=== PATIENT | female | born 1975 | race Caucasian/White ===

== ENCOUNTER 2021-05-02 08:00 | Outpatient (CLI) | payer OTHER | END 2021-05-02 23:59 | disposition home or self-care (01) | LOC: LAB.S 08:00 | PROVIDERS: ATTEND Physician Assistant Medical | DX: R39.15 Urgency of urination (principal); R35.0 Frequency of micturition | CPT/HCPCS: 87086 ==

== ENCOUNTER 2022-09-11 18:54 | Emergency (ER) | payer OTHER ==
--- OUTSIDE RECORDS SUMMARY | 2022-09-11 19:20 | EXTERNAL MEDICAL SUMMARY RPT | Continuity of Care Document ---
:1975 Author Organization [facility] Address [address] [place] [address] Phone Care Team Providers Name Role Phone Unavailable Unavailable Unavailable Berna Joseph Pa-C Unavailable Unavailable Allergies No information. Encounters No information. Functional Status No information. Immunizations No information. Medications date description facility 2022-07-16 00:00 guanfacine [facility] 2022-07-17 00:00 guanfacine [facility] 2022-07-16 00:00 budesonide[facility]oterol [facility] 2022-07-17 00:00 budesonide-formoterol [facility] 2022-07-16 00:00 buspirone [facility] 2022-07-17 00:00 buspirone [facility] 2022-07-16 00:00 ipratropium-albuterol [facility] 2022-07-17 00:00 ipratropium-albuterol [facility] 2022-07-16 00:00 albuterol sulfate [facility] 2022-07-17 00:00 albuterol sulfate [facility] 2022-07-16 00:00 lisinopril [facility] 2022-07-17 00:00 lisinopril [facility] 2022-07-16 00:00 tiotropium bromide [facility] 2022-07-17 00:00 tiotropium bromide Walk[facility]In [facility] 2022-07-16 00:00 ipratropium bromide [facility] 2022-07-17 00:00 ipratropium bromide [facility] 2022-07-16 00:00 bupropion hcl Walk[facility]In [facility] 2022-07-17 00:00 bupropion hcl [facility] 2022-07-16 00:00 budesonide-formoterol [facility] 2022-07-17 00:00 budesonide-formoterol [facility] 2022-07-16 00:00 lisinopril [facility] 2022-07-17 00:00 lisinopril [facility] 2022-07-16 00:00 valacyclovir [facility] 2022-07-16 00:00 budesonide-formoterol [facility] 2022-07-17 00:00 budesonide-formoterol [facility] 2022-07-16 00:00 norgestrel-ethinyl estradiol [facility] 2022-07-17 00:00 norgestrel-ethinyl estradiol [facility] 2022-07-16 00:00 ipratropium-albuterol [facility] 2022-07-17 00:00 ipratropium-albuterol [facility] 2022-07-16 00:00 ipratropium-albuterol [facility] 2022-07-17 00:00 ipratropium-albuterol [facility] 2022-07-16 00:00 guanfacine [facility] 2022-07-17 00:00 guanfacine [facility] 2022-07-16 00:00 thyroid (pork) [facility] 2022-07-17 00:00 thyroid (pork) [facility] 2022-07-16 00:00 norgestrel-ethinyl estradiol [facility] 2022-07-17 00:00 norgestrel-ethinyl estradiol [facility] 2022-07-16 00:00 thyroid (pork) [facility] 2022-07-17 00:00 thyroid (pork) [facility] 2022-07-16 00:00 norgestrel-ethinyl estradiol [facility] 2022-07-17 00:00 norgestrel-ethinyl estradiol [facility] 2022-07-16 00:00 topiramate [facility] 2022-07-17 00:00 topiramate [facility] 2022-07-16 00:00 carvedilol [facility] 2022-07-17 00:00 carvedilol [facility] 2022-07-16 00:00 montelukast [facility] 2022-07-17 00:00 montelukast [facility] 2022-07-16 00:00 norgestrel-ethinyl estradiol [facility] 2022-07-17 00:00 norgestrel-ethinyl estradiol [facility] 2022-07-16 00:00 liothyronine [facility] 2022-07-17 00:00 liothyronine [facility] 2022-07-16 00:00 thyroid (pork) [facility] 2022-07-17 00:00 thyroid (pork) [facility] 2022-07-16 00:00 lamotrigine [facility] 2022-07-17 00:00 lamotrigine [facility] 2022-07-16 00:00 liothyronine [facility] 2022-07-17 00:00 liothyronine [facility] 2022-07-16 00:00 valacyclovir [facility] 2022-07-16 00:00 lisinopril [facility] 2022-07-17 00:00 lisinopril [facility] 2022-07-16 00:00 carvedilol [facility] 2022-07-17 00:00 carvedilol [facility] 2022-07-16 00:00 atomoxetine [facility] 2022-07-17 00:00 atomoxetine [facility] 2022-07-16 00:00 valacyclovir [facility] 2022-07-16 00:00 lisinopril [facility] 2022-07-17 00:00 lisinopril [facility] 2022-07-16 00:00 lamotrigine [facility] [place] [facility] 2022-07-17 00:00 lamotrigine [facility] [place] [facility] 2022-07-16 00:00 carvedilol [facility] [place] [facility] 2022-07-17 00:00 carvedilol [facility] [place] [facility] 2022-07-16 00:00 thyroid (pork) [facility] [place] [facility] 2022-07-17 00:00 thyroid (pork) [facility] [place] [facility] 2022-07-16 00:00 liothyronine [facility] [place] [facility] 2022-07-17 00:00 liothyronine [facility] [place] [facility] 2022-07-16 00:00 ipratropium bromide [facility] 2022-07-17 00:00 ipratropium bromide [facility] 2022-07-16 00:00 tiotropium bromide [facility] [place] [facility] 2022-07-17 00:00 tiotropium bromide [facility] [place] [facility] 2022-07-16 00:00 albuterol sulfate [facility] [place] [facility] 2022-07-17 00:00 albuterol sulfate [facility] [place] [facility] 2022-07-16 00:00 [facility] 2022-07-17 00:00 ipratropium-albuterol [facility] 2022-07-16 00:00 budesonide-formoterol [facility] 2022-07-17 00:00 budesonide-formoterol [facility] 2022-07-16 00:00 montelukast [facility] 2022-07-17 00:00 montelukast [facility] 2022-07-16 00:00 topiramate [facility] 2022-07-17 00:00 topiramate [facility] 2022-07-16 00:00 montelukast [facility] 2022-07-17 00:00 montelukast [facility] 2022-07-16 00:00 cyclobenzaprine [facility] 2022-07-17 00:00 cyclobenzaprine [facility] 2022-07-16 00:00 buspirone [facility] 2022-07-17 00:00 buspirone [facility] 2022-07-16 00:00 tiotropium bromide [facility] 2022-07-17 00:00 tiotropium bromide [facility] 2022-07-16 00:00 bupropion hcl [facility] 2022-07-17 00:00 bupropion hcl [facility] 2022-07-16 00:00 cyclobenzaprine [facility] 2022-07-17 00:00 cyclobenzaprine [facility] 2022-07-16 00:00 lamotrigine [facility] 2022-07-17 00:00 lamotrigine [facility] 2022-07-16 00:00 guanfacine [facility] 2022-07-17 00:00 guanfacine [facility] 2022-07-16 00:00 atomoxetine [facility] 2022-07-17 00:00 atomoxetine [facility] 2022-07-16 00:00 albuterol sulfate [facility] 2022-07-17 00:00 albuterol sulfate [facility] 2022-07-16 00:00 buspirone [facility] 2022-07-17 00:00 buspirone [facility] 2022-07-16 00:00 valacyclovir [facility] 2022-07-16 00:00 montelukast [facility] 2022-07-17 00:00 montelukast [facility] 2022-07-16 00:00 albuterol sulfate [facility] 2022-07-17 00:00 albuterol sulfate [facility] 2022-07-16 00:00 carvedilol [facility] 2022-07-17 00:00 carvedilol [facility] 2022-07-16 00:00 topiramate [facility] 2022-07-17 00:00 topiramate [facility] 2022-07-16 00:00 atomoxetine [facility] 2022-07-17 00:00 atomoxetine [facility] 2022-07-16 00:00 lamotrigine [facility] 2022-07-17 00:00 lamotrigine [facility] 2022-07-16 00:00 topiramate [facility] 2022-07-17 00:00 topiramate [facility] 2022-07-16 00:00 cyclobenzaprine [facility] 2022-07-17 00:00 cyclobenzaprine [facility] 2022-07-16 00:00 atomoxetine [facility] 2022-07-17 00:00 atomoxetine [facility] 2022-07-16 00:00 cyclobenzaprine [facility] 2022-07-17 00:00 cyclobenzaprine [facility] 2022-07-16 00:00 ipratropium bromide [facility] 2022-07-17 00:00 ipratropium bromide [facility] 2022-07-16 00:00 bupropion hcl [facility] 2022-07-17 00:00 bupropion hcl [facility] 2022-07-16 00:00 guanfacine [facility] 2022-07-17 00:00 guanfacine [facility] 2022-07-16 00:00 buspirone [facility] 2022-07-17 00:00 buspirone [facility] 2022-07-16 00:00 tiotropium bromide [facility] 2022-07-17 00:00 tiotropium bromide [facility] 2022-07-16 00:00 liothyronine Walk[facility] 2022-07-17 00:00 liothyronine [facility] 2022-07-16 00:00 ipratropium bromide [facility] 2022-07-17 00:00 ipratropium bromide [facility] 2022-07-16 00:00 bupropion hcl [facility] 2022-07-17 00:00 bupropion hcl [facility] Problems date description facility 2022-07-16 00:00 Herpes zoster [facility] 2022-07-16 00:00 Other herpes zoster eye disease [facility] Procedures date description facility 2022-07-16 00:00 Visit Code Hold [facility] Results/Labs No information. Social History date description facility 2022-07-16 00:00 Never smoker [facility] Vital Signs date measurement value units 2022-07-16 00:00 BMI 47.41 kg/m2 2022-07-16 00:00 BP_diastolic 85 mmHg 2022-07-16 00:00 BP_systolic 130 mmHg 2022-07-16 00:00 heart_rate 83 /min 2022-07-16 00:00 height_metric 154.94 cm 2022-07-16 00:00 height_standard 61 in 2022-07-16 00:00 respiration_rate 16 /min 2022-07-16 00:00 temperature_metric 36.72 C 2022-07-16 00:00 temperature_standard 98.1 F 2022-07-16 00:00 weight_metric 113.4 kg 2022-07-16 00:00 weight_standard 250 lb
--- NOTE | 2022-09-11 19:27 | ED Physician Documentation ---
History of Present Illness - Stated complaint Stated Complaint: L SIDE NUMBNESS - Chief complaint Chief Complaint: Neuro - History obtained from History obtained from: Patient, Family - History of Present Illness Timing: Today Pain level max: 0 Pain level now: 0 - Additonal information Additional information: Patient is a 47-year-old female who presents to the emergency department stating that earlier today she felt a tingling and numbness sensation to the left side of her face from her forehead down to her jaw. She states she also felt a similar sensation mainly in her left hand but slightly down the lateral aspect of the left arm as well. She then felt the same tingling in her right arm. She states that it would last for maybe a few seconds to a few minutes and then resolved. She states that occurred a few times today. No headache. No fever. No chills. No chest pain. No shortness of breath. She states that she was on a Zoom call for work and they had her smile and show her teeth and lift her arms. She states that they said everything appeared normal. Patient felt that she did not have any difficulty speaking or have any slurring of her speech. Has not had similar symptoms previously. Went to the walk-in clinic and was sent here for evaluation. Patient is currently fully asymptomatic. Patient has not had any recent illnesses. No changes in her medications. No rash. Review of Systems Constitutional: denies: Fever, Chills Respiratory: denies: Dyspnea, Cough GI: denies: Abdominal Pain, Vomiting, Diarrhea Skin: denies: Rash Musculoskeletal: denies: Neck pain, Back pain Neurologic: denies: Focal weakness, Seizure, Confused, Altered mental status, Headache PD PAST MEDICAL HISTORY - Past Medical History Past Medical History: Yes Cardiovascular: Hypertension Endocrine/Autoimmune: HyPOthyroidism Psych: Depression, Anxiety - Allergies Allergies/Adverse Reactions: Allergies Allergy/AdvReac Type Severity Reaction Status Date / Time No Known Drug Allergies Allergy Verified 09/11/22 18:57 - Living Situation Living Situation: reports: With family Living Arrangement: reports: At home - Social History Does the pt smoke?: No Does the pt drink ETOH?: Yes ETOH Use: Other (Occasional) Does the pt have substance abuse?: Yes Substance Use and Type: Marijuana - Family History Family history: reports: Non contributory PD ED PE NORMAL - Vitals Vital signs reviewed: Yes - General General: Alert and oriented X 3, No acute distress - HEENT HEENT: PERRL, Ears normal, Moist mucous membranes, Pharynx benign - Neck Neck: Supple, no meningeal sign, No bony TTP, No JVD, No bruit - Cardiac Cardiac: RRR, No murmur, Strong equal pulses - Respiratory Respiratory: No respiratory distress, Clear bilaterally - Abdomen Abdomen: Soft, Non tender, Non distended - Back Back: No spinal TTP - Derm Derm: Warm and dry, No rash - Extremities Extremities: No edema, No calf tenderness / cord - Neuro Neuro: Alert and oriented X 3, [employer] 2-12 intact, No motor deficit, No sensory deficit, Normal speech Eye Opening: Spontaneous Motor: Obeys Commands Verbal: Oriented GCS Score: 15 - Psych Psych: Normal mood, Normal affect Results - Vitals Vitals: Vital Signs - 24 hr 09/11/22 09/11/22 09/11/22 18:57 19:00 19:02 Temperature 36.8 C 37.4 C Heart Rate 90 95 Respiratory 16 16 Rate Blood Pressure 150/100 H 127/82 H O2 Saturation 99 98 Oxygen O2 Source Room air - EKG (time done) 2013 EKG releavant findings:: EKG personally interpreted by author of this note. Relevant findings are: Rate: Rate (enter#) (80) Rhythm: NSR Stephenson: Normal Intervals: Normal [place] QRS: Normal Ischemia: Normal ST segments - Labs Labs: Laboratory Tests 09/11/22 09/11/22 09/11/22 19:21 19:28 19:28 WBC 5.9 RBC 4.77 Hgb 15.5 Hct 46.5 MCV 97.5 MCH 32.5 H MCHC 33.3 RDW 12.3 Plt Count 291 MPV 9.1 Neut # (Auto) 2.4 Lymph # (Auto) 2.8 [place] # (Auto) 0.5 Eos # (Auto) 0.3 Baso # (Auto) 0.0 Absolute Nucleated RBC 0.00 Nucleated RBC % 0.0 PT INR APTT Sodium 140 Potassium 3.8 Chloride 109 Carbon Dioxide 24 Anion Gap 7.0 BUN 8 Creatinine 1.0 Estimated GFR (MDRD) 59 L Glucose 110 H Calcium 8.8 Phosphorus 3.2 Magnesium 2.2 Total Bilirubin 0.4 AST 18 ALT 22 Alkaline Phosphatase 49 Total Protein 7.1 Albumin 4.4 Globulin 2.7 Albumin/Globulin Ratio 1.6 Urine Color YELLOW Urine Clarity CLEAR Urine pH 8.0 H Ur Specific [place] 1.010 Urine Protein NEGATIVE Urine Glucose (UA) NEGATIVE Urine Ketones NEGATIVE Urine Occult Blood NEGATIVE Urine Nitrite NEGATIVE Urine Bilirubin NEGATIVE Urine Urobilinogen 0.2 (NORMAL) Ur Leukocyte Esterase NEGATIVE Ur Microscopic Review NOT INDICATED Urine Culture Comments NOT INDICATED Urine HCG, Qual NEGATIVE 09/11/22 19:31 WBC RBC Hgb Hct MCV MCH MCHC RDW Plt Count MPV Neut # (Auto) Lymph # (Auto) [place] # (Auto) Eos # (Auto) Baso # (Auto) Absolute Nucleated RBC Nucleated RBC % PT 10.8 INR 1.0 APTT 23.6 L Sodium Potassium Chloride Carbon Dioxide Anion Gap BUN Creatinine Estimated GFR (MDRD) Glucose Calcium Phosphorus Magnesium Total Bilirubin AST ALT Alkaline Phosphatase Total Protein Albumin Globulin Albumin/Globulin Ratio Urine Color Urine Clarity Urine pH Ur Specific [place] Urine Protein Urine Glucose (UA) Urine Ketones Urine Occult Blood Urine Nitrite Urine Bilirubin Urine Urobilinogen Ur Leukocyte Esterase Ur Microscopic Review Urine Culture Comments Urine HCG, Qual - Rads (name of study) CT angio head Relevant Findings:: Final report received, See rad report CT angio neck Relevant Findings:: Final report received, See rad report PD Medical Decision Making - ED course Complexity details: reviewed results, re-evaluated patient, considered differential, d/w patient ED course: Patient with self-limited paresthesias earlier today. Mainly on the left side of the face and arm, but did have some on the right arm as well. Unclear etiology of her paresthesias. No motor involvement. No vision changes. No speech changes. NIH stroke scale of 0. Patient is asymptomatic here. No acute findings on CT angiogram of the head and neck. No acute findings on CBC, coagulation studies, complete metabolic panel including magnesium and phosphorus or urinalysis. We will have her follow-up with her doctor for further care. No evidence of aneurysm, stroke, intracranial hemorrhage. Patient counseled re garding signs and symptoms for which I believe and urgent re-evaluation would be necessary. Patient with good understanding of and agreement to plan and is comfortable going home at this time This document was made in part using voice recognition software. While efforts are made to proofread this document, sound alike and grammatical errors may occur. Departure - Departure Disposition: Home, Self Care Clinical Impression: Paresthesia Condition: Good Instructions: ED Paraesthesias Follow-Up: Christine Jerry ARNP [Primary Care Provider] - Within 1 week Comments: The cause of your symptoms today is unclear. There are no acute findings on CT angiogram of your head and neck. Your laboratory testing and EKG are unremarkable as well. Please follow-up with your doctor for further care and r eturn if you worsen. Please continue your current medications at home. CT angiogram head: IMPRESSION: 1. No acute intracranial abnormality. 2. No high-grade stenosis or occlusion of the central intracranial arteries. CT Angiogram neck: IMPRESSION: 1. No high-grade stenosis or occlusion of the head and neck arteries. 2. Short segment mild to moderate extrinsic narrowing of the petrous segment of the right internal carotid artery within its bony canal of indeterminate clinical significance. The estimate of stenosis included in the report of the imaging study was calculated using the NASCET method NIHSS - Time Time: 19:20 - Level of Consciousness Level of consciousness: (0) Alert, Keenly responsive LOC Questions: (0) Answers both Q's correct LOC Commands: (0) Performs both correctly - Gaze Best Gaze: (0) Normal - Visual Visual: (0) No loss - Facial Palsy Facial Palsy: (0) Normal, symmetrical movement - Motor Arms (both separate) Motor Arm (right): (0) No drift Motor Arm (left): (0) No drift - Motor Legs (both separate) Motor Leg (right): (0) No drift Motor Leg (left): (0) No drift - Limb Ataxia Limb Ataxia: (0) Absent - Sensory Sensory: (0) Normal - Best Language Best Language: (0) No aphasia - Dysarthria Dysarthria: (0) Normal - Extinction and Inattention (formally neg Extinction and inattention: (0) No abnormality - Total Score/Results Total Score/Result: 0
[2022-09-11 19:38] LABS: BASOPHILS % (AUTO) 0.5 %; EOSINOPHILS # (AUTO) 0.3 10^3/uL (0.0-0.7); EOSINOPHILS % (AUTO) 4.5 %; HCT - HEMATOCRIT 46.5 % (37.0-47.0); HGB - HEMOGLOBIN 15.5 g/dL (12.0-16.0); LYMPHOCYTES # (AUTO) 2.8 10^3/uL (1.5-3.5); LYMPHOCYTES % (AUTO) 47.5 %; MEAN CORPUSCULAR HEMOGLOBIN 32.5 pg (27.0-31.0); MEAN CORPUSCULAR HGB CONC 33.3 g/dL (32.0-36.0); MEAN CORPUSCULAR VOLUME 97.5 fL (81.0-99.0); MEAN PLATELET VOLUME 9.1 fL (7.9-10.8); MONOCYTES # (AUTO) 0.5 10^3/uL (0.0-1.0); MONOCYTES % (AUTO) 7.7 %; NEUTROPHILS # (AUTO) 2.4 10^3/uL (1.5-6.6); NEUTROPHILS % (AUTO) 39.8 %; PLT - PLATELET COUNT 291 10^3/uL (130-450); RED BLOOD COUNT 4.77 10^6/uL (4.20-5.40); RED CELL DISTRIBUTION WIDTH 12.3 % (12.0-15.0); WHITE BLOOD COUNT 5.9 x10^3/uL (4.8-10.8)
[2022-09-11 19:44] LABS: BILIRUBIN,URINE NEGATIVE (NEGATIVE); GLUCOSE, URINE (UA) NEGATIVE (NEGATIVE); KETONES,URINE (UA) NEGATIVE (NEGATIVE); LEUKOCYTE ESTERASE, URINE NEGATIVE (NEGATIVE); NITRITE,URINE NEGATIVE (NEGATIVE); OCCULT BLOOD,URINE NEGATIVE (NEGATIVE); PROTEIN,URINE NEGATIVE (NEGATIVE); UROBILINOGEN,URINE 0.2 (NORMAL) E.U./dL (NORMAL)
[2022-09-11 19:45] LABS: PT - PROTHROMBIN TIME 10.8 secs (9.9-12.6)
[2022-09-11 19:48] LABS: CLARITY,URINE CLEAR (CLEAR); HCG UR QUAL NEGATIVE
[2022-09-11 19:50] LABS: ALBUMIN 4.4 g/dL (3.2-5.5); ALBUMIN/GLOBULIN RATIO 1.6 (1.0-2.2); BILIRUBIN,TOTAL 0.4 mg/dL (0.2-1.0); CALCIUM 8.8 mg/dL (8.5-10.3); MAGNESIUM 2.2 mg/dL (1.7-2.8); PHOSPHORUS 3.2 mg/dL (2.5-4.6); POTASSIUM 3.8 mmol/L (3.5-5.0); TOTAL PROTEIN 7.1 g/dL (6.7-8.2)
[2022-09-11 19:52] LABS: PARTIAL THROMBOPLASTIN TIME 23.6 secs (24.9-33.3)
[2022-09-11] MEDS ORDERED: iohexoL-300 100 ML VIAL ONE (20:12)
[2022-09-11] MEDS: iohexoL-300 100 ML VIAL IVP ONE (20:41)
--- NOTE | 2022-09-11 20:51 | CT Report ---
PROCEDURE: ANGIO HEAD W/WO INDICATIONS: Left-sided arm and facial numbness earlier today CONTRAST: 80mL Omni 300 TECHNIQUE: Precontrast 4.5 mm thick angled axial sections acquired from the foramen magnum to the vertex. Afte r the administration of intravenous contrast, 1 mm thick sections acquired through the [place] of [place] is. Postcontrast 4.5 mm thick sections then re-acquired from the foramen magnum to the vertex. 3-di mensional wtfonjo-dfmdzzlev-gkdrzuxbak (MIP) and/or volume rendering reformats were acquired of the c entral intracranial vasculature. For radiation dose reduction, the following was used: automated ex posure control, adjustment of mA and/or kV according to patient size. COMPARISON: Concurrent CTA of the neck. FINDINGS: Image quality: Diagnostic. BRAIN: CSF spaces: Basal cisterns are patent. No extra-axial fluid collections. Ventricles are normal in size and shape. Brain: No intracranial hemorrhage, mass, or mass effect. Sutton-white matter interface appears preser cande. No abnormal intracranial enhancement. Skull and face: Calvarium and facial bones appear intact, without suspicious lesions. Orbits appear normal. Sinuses: There is mild mucosal thickening within the right ethmoid and frontal sinuses. Mastoid air c ells are clear. HEAD CT ANGIOGRAPHY: Anterior circulation: Intracranial internal carotid arteries are normal in size and appear patent bi laterally. There is mild atherosclerotic calcification along the cavernous segments of the internal carotid arteries. The paired anterior cerebral arteries appear patent bilaterally. The anterior com municating artery also appears patent. The middle cerebral arteries appear patent bilaterally. No hi gh-grade stenosis, occlusion, or filling defects. No cerebral aneurysms identified. Posterior circulation: Visualized portions of the vertebral arteries demonstrate normal caliber, and join to form a patent basilar artery. The posterior cerebral arteries appears patent bilaterally. No high-grade stenosis, occlusion, or filling defects. No cerebral aneurysms identified. IMPRESSION: 1. No acute intracranial abnormality. 2. No high-grade stenosis or occlusion of the central intracranial arteries. Reviewed by: Stephon Hardwick MD on 09/11/2022 8:50 PM PDT Approved by: Stephon Hardwick MD on 09/11/2022 8:50 PM PDT Station ID: [id number]
--- NOTE | 2022-09-11 20:59 | CT Report ---
PROCEDURE: ANGIO NECK W INDICATIONS: Left-sided arm and facial numbness earlier today CONTRAST: 80mL Omni 300 TECHNIQUE: After the administration of intravenous contrast, 1.5 mm axial sections acquired from the aortic arch to the [place] of [place]. Coronal 3-D maximum intensity projection (MIP) and/or volume rendering ref ormats were then performed. For radiation dose reduction, the following was used: automated exposur e control, adjustment of mA and/or kV according to patient size. COMPARISON: Concurrent CTA head. FINDINGS: Image quality: There is beam hardening artifact in the thorax as well as streak artifact from patient 's injected contrast limiting evaluation. NECK CT ANGIOGRAPHY: Carotid system: The great vessels demonstrate a conventional anatomy as they arise from the aortic a rch. The origins of the common carotid arteries appear patent. The common carotid arteries demonstr ate normal caliber and courses. The bifurcation regions are both widely patent. The internal caroti d arteries appear patent bilaterally. There is mild to moderate short segment extrinsic narrowing of the petrous segment of the right internal carotid artery within its bony canal Posterior circulation: The origins of the vertebral arteries both appear patent. The more superior extracranial portions of both vertebral arteries also demonstrate normal courses and calibers. They join to form a patent basilar artery. Soft tissues: Visualized neck soft tissues demonstrate no suspicious abnormalities. Bones: No suspicious bony lesions. Visualized cervical spine demonstrates straightening of the cerv ical lordosis. There is multilevel degenerative disc disease and facet joint arthropathy. IMPRESSION: 1. No high-grade stenosis or occlusion of the head and neck arteries. 2. Short segment mild to moderate extrinsic narrowing of the petrous segment of the right internal ca rotid artery within its bony canal of indeterminate clinical significance. The estimate of stenosis included in the report of the imaging study was calculated using the NASCET method Reviewed by: Stephon Hardwick MD on 09/11/2022 8:57 PM PDT Approved by: Stephon Hardwick MD on 09/11/2022 8:57 PM PDT Station ID: [id number]
[2022-09-11 21:07] VITALS: BP 131/72
== END 2022-09-11 21:17 | disposition home or self-care (01) ==
LOC: ED 18:54
DX: R20.2 Paresthesia of skin (principal)
CPT/HCPCS: 36415; 70496; 70498; 80053; 81003; 81025; 83735; 84100; 85025; 85610; 85730; 93005; 99283; 99284; Q9967; 81001; 87086

== ENCOUNTER 2023-04-06 20:23 | Emergency (ER) | payer OTHER ==
[2023-04-06 21:00] LABS: BASOPHILS # (AUTO) 0.1 10^3/uL (0.0-0.1); BASOPHILS % (AUTO) 0.6 %; EOSINOPHILS # (AUTO) 0.2 10^3/uL (0.0-0.7); EOSINOPHILS % (AUTO) 1.7 %; HCT - HEMATOCRIT 46.9 % (37.0-47.0); HGB - HEMOGLOBIN 15.6 g/dL (12.0-16.0); LYMPHOCYTES # (AUTO) 3.1 10^3/uL (1.5-3.5); MEAN CORPUSCULAR HEMOGLOBIN 32.6 pg (27.0-31.0); MEAN CORPUSCULAR HGB CONC 33.3 g/dL (32.0-36.0); MEAN CORPUSCULAR VOLUME 98.1 fL (81.0-99.0); MEAN PLATELET VOLUME 8.9 fL (7.9-10.8); MONOCYTES # (AUTO) 0.6 10^3/uL (0.0-1.0); MONOCYTES % (AUTO) 7.1 %; NEUTROPHILS # (AUTO) 4.9 10^3/uL (1.5-6.6); NEUTROPHILS % (AUTO) 55.3 %; PLT - PLATELET COUNT 317 10^3/uL (130-450); RED BLOOD COUNT 4.78 10^6/uL (4.20-5.40); RED CELL DISTRIBUTION WIDTH 11.8 % (12.0-15.0); WHITE BLOOD COUNT 8.9 x10^3/uL (4.8-10.8)
[2023-04-06 21:07] LABS: BILIRUBIN,URINE NEGATIVE (NEGATIVE); GLUCOSE, URINE (UA) NEGATIVE (NEGATIVE); KETONES,URINE (UA) NEGATIVE (NEGATIVE); LEUKOCYTE ESTERASE, URINE NEGATIVE (NEGATIVE); NITRITE,URINE POSITIVE (NEGATIVE); OCCULT BLOOD,URINE SMALL (NEGATIVE); PH,URINE 7.5 PH (5.0-7.5); PROTEIN,URINE TRACE mg/dL (NEGATIVE); UROBILINOGEN,URINE 1 (NORMAL) E.U./dL (NORMAL)
[2023-04-06] MEDS ORDERED: ONDANSETRON ODT 4 MG TABLET TL STA (21:08)
--- NOTE | 2023-04-06 21:08 | ED Physician Documentation ---
History of Present Illness - Stated complaint Stated Complaint: BACK/ABD PX - Chief complaint Chief Complaint: Abd Pain - Additonal information Additional information: I do not care 1 where in 39-year-old female presents to the emergency de partment for evaluation of dysuria urgency and frequency. Symptoms began this morning. No fevers. Some nausea no vomiting. This afternoon she began to have pain in the low back radiating towards the front. She did take some Azo [id number] as well as one of her husbands Vicodin's. Past surgical history most significant for previous cholecystectomy. Review of Systems Constitutional: denies: Fever Throat: reports: Reviewed and negative Cardiac: reports: Reviewed and negative Respiratory: reports: Reviewed and negative GI: reports: Abdominal Pain, Nausea. denies: Vomiting : reports: Dysuria, Frequency Skin: reports: Reviewed and negative Musculoskeletal: reports: Reviewed and negative PD PAST MEDICAL HISTORY - Past Medical History Cardiovascular: Hypertension Endocrine/Autoimmune: HyPOthyroidism Psych: Depression, Anxiety - Present Medications Home Medications: Ambulatory Orders Medication Instructions Recorded Confirmed Cefpodoxime Proxetil [Vantin] 100 mg PO Q12H #14 tablet 04/06/23 - Allergies Allergies/Adverse Reactions: Allergies Allergy/AdvReac Type Severity Reaction Status Date / Time No Known Drug Allergies Allergy Verified 04/06/23 20:43 - Social History Does the pt smoke?: No Smoking Status: Never smoker Does the pt drink ETOH?: Yes Does the pt have substance abuse?: Yes - Immunizations Immunizations are current?: Yes - POLST Patient has POLST: No PD ED PE NORMAL - General General: Alert and oriented X 3, No acute distress - HEENT HEENT: Atraumatic, Moist mucous membranes - Neck Neck: Supple, no meningeal sign - Cardiac Cardiac: RRR, No murmur - Respiratory Respiratory: No respiratory distress - Abdomen Abdomen: Normal bowel sounds, Soft. No: Non tender (mild lowr abdorminal tenderness. no guarding/rebound. exam limited by habitus) - Back Back: No CVA TTP - Derm Derm: Normal color - Extremities Extremities: No deformity - Neuro Neuro: Alert and oriented X 3 Eye Opening: Spontaneous Motor: Obeys Commands Verbal: Oriented GCS Score: 15 Results - Vitals Vitals: Vital Signs - 24 hr 04/06/23 20:38 Temperature 36.7 C Heart Rate 81 Respiratory 18 Rate Blood Pressure 140/88 H O2 Saturation 98 Oxygen O2 Source Room air - Labs Labs: Laboratory Tests 04/06/23 04/06/23 04/06/23 20:54 20:54 20:54 WBC 8.9 RBC 4.78 Hgb 15.6 Hct 46.9 MCV 98.1 MCH 32.6 H MCHC 33.3 RDW 11.8 L Plt Count 317 MPV 8.9 Neut # (Auto) 4.9 Lymph # (Auto) 3.1 [place] # (Auto) 0.6 Eos # (Auto) 0.2 Baso # (Auto) 0.1 Absolute Nucleated RBC 0.00 Nucleated RBC % 0.0 Sodium 137 Potassium 3.7 Chloride 106 Carbon Dioxide 24 Anion Gap 7.0 BUN 12 Creatinine 1.2 Estimated GFR (MDRD) 48 L Glucose 101 Calcium 9.8 Total Bilirubin 0.4 AST 16 ALT 26 Alkaline Phosphatase 60 Total Protein 7.8 Albumin 4.5 Globulin 3.3 Albumin/Globulin Ratio 1.4 Lipase 30 Urine Color YELLOW Urine Clarity CLOUDY Urine pH 7.5 Ur Specific [place] 1.020 Urine Protein TRACE Urine Glucose (UA) NEGATIVE Urine Ketones NEGATIVE Urine Occult Blood SMALL H Urine Nitrite POSITIVE H Urine Bilirubin NEGATIVE Urine Urobilinogen 1 (NORMAL) Ur Leukocyte Esterase NEGATIVE Urine RBC 6-10 H Urine WBC 0-3 Ur Squamous Epith Cells NONE SEEN Amorphous Sediment Marked Urine Bacteria Few Ur Microscopic Review INDICATED Urine Culture Comments INDICATED Urine HCG, Qual 04/06/23 20:54 WBC RBC Hgb Hct MCV MCH MCHC RDW Plt Count MPV Neut # (Auto) Lymph # (Auto) [place] # (Auto) Eos # (Auto) Baso # (Auto) Absolute Nucleated RBC Nucleated RBC % Sodium Potassium Chloride Carbon Dioxide Anion Gap BUN Creatinine Estimated GFR (MDRD) Glucose Calcium Total Bilirubin AST ALT Alkaline Phosphatase Total Protein Albumin Globulin Albumin/Globulin Ratio Lipase Urine Color Urine Clarity Urine pH Ur Specific [place] Urine Protein Urine Glucose (UA) Urine Ketones Urine Occult Blood Urine Nitrite Urine Bilirubin Urine Urobilinogen Ur Leukocyte Esterase Urine RBC Urine WBC Ur Squamous Epith Cells Amorphous Sediment Urine Bacteria Ur Microscopic Review Urine Culture Comments Urine HCG, Qual NEGATIVE PD Medical Decision Making - ED course Complexity details: reviewed results, re-evaluated patient, considered differential, d/w patient ED course: 39-year-old female presents emergency department for evaluation 2 days dysuria urgency and frequency. Began having right-sided low back pain with radiation to the anterior abdomen this afternoon. Some nausea no vomiting. She did take Azo and her 's Vicodin prior to arrival. Presentation the emergency department she is alert and well-appearing. No fever tachycardia or hypotension. Abdominal exam was somewhat limited by body habitus. Did obtain CBC and electrolytes as well as urinalysis. Per my interpretation of the labs no leukocytosis or worrisome electrolyte derangement. Her urine is consistent with acute cystitis. Nitrite positive and some bacteria. Culture is pending. I have initially given a dose of Vantin for this. I discussed with patient that common things being common, urinary tract infection would explain the symptoms. However she feels that her pain was out of proportion for simple UTI and is concerned that she could have renal or ureter colic. As such we have ordered a CT of the abdomen for further differentiation. Patient will be signed out to my nighttime colleague to follow-up on the CT results. If negative she is stable for discharge home with prescription for Vantin sent to the patient's preferred pharmacy Departure - Departure Clinical Impression: Acute cystitis Qualifiers: Hematuria presence: with hematuria Qualified Code(s): N30.01 - Acute cystitis with hematuria Prescriptions: Cefpodoxime Proxetil [Vantin] 100 mg PO Q12H #14 tablet Comments: You were seen today or pain and urgency with urination. You then developed pain in your right low back with radiation to the lower abdomen. You were concerned that you have kidney stones. Your labs are essentially normal today though you do have a urinary tract infection. A prescription for an antibiotic called Vantin has been sent to the [facility] in [place]. Please begin taking as directed twice daily for the next week. With the first few doses of antibiotics I would expect your symptoms to be markedly better. Please follow closely with your primary care doctor. Return to the ER for any new or worsening symptoms. Forms: PCP List
[2023-04-06 21:09] LABS: CLARITY,URINE CLOUDY (CLEAR)
[2023-04-06 21:10] LABS: HCG UR QUAL NEGATIVE
[2023-04-06 21:13] LABS: ALBUMIN 4.5 g/dL (3.2-5.5); ALBUMIN/GLOBULIN RATIO 1.4 (1.0-2.2); BILIRUBIN,TOTAL 0.4 mg/dL (0.2-1.0); CALCIUM 9.8 mg/dL (8.5-10.3); CREATININE 1.2 mg/dL (0.6-1.3); POTASSIUM 3.7 mmol/L (3.5-4.5); TOTAL PROTEIN 7.8 g/dL (6.4-8.9)
[2023-04-06 21:20] LABS: WBC,URINE 0-3 /HPF (0-5)
[2023-04-06 21:21] LABS: AMORPHOUS SEDIMENT,UR Marked /LPF; BACTERIA,URINE Few /HPF (None Seen); SQUAMOUS EPITHELIAL CELL,UR NONE SEEN (<= Few)
[2023-04-06] MEDS ORDERED: CEFPODOXIME PROXETIL 100 MG TABLET PO STA (21:22)
[2023-04-07] MEDS ORDERED: iohexoL-300 100 ML VIAL IVP ONE (00:10)
--- NOTE | 2023-04-07 00:13 | CT Report ---
PROCEDURE: ABDOMEN/PELVIS W INDICATIONS: UTI; r/o ureter and renal colic CONTRAST: Nonionic 100 ML OMNI 300 TECHNIQUE: After the administration of intravenous contrast, 5 mm thick sections acquired from the diaphragms to the symphysis. 5 mm thick coronal and sagittal reformats were acquired. For radiation dose reducti on, the following was used: automated exposure control, adjustment of mA and/or kV according to grant ent size. COMPARISON: None. FINDINGS: Image quality: Excellent. Lung bases and heart: Unremarkable. Liver: No solid mass. Gallbladder and biliary tree: The gallbladder has been previously resected, no biliary distention is present. Spleen: No splenomegaly. Pancreas: No pancreatic ductal dilation. Adrenals: No adrenal nodule. Kidneys and ureters: No hydronephrosis. No renal cystic lesion which requires follow up. No solid mas s. Bowel and peritoneum: No bowel distension. No pathologic free fluid. Lymph nodes: No central or retroperitoneal adenopathy. Vessels: No infrarenal aortic aneurysm. PELVIS Reproductive organs: Unremarkable. Bladder: No abnormal wall thickening, accounting for underdistension. Pelvic lymph nodes: No pelvic adenopathy by size criteria. Bones: No aggressive osseous abnormality. Other: No significant ventral or inguinal hernia. IMPRESSION: No hydronephrosis or nephrolithiasis is found, a definite source of current symptoms is not seen. A n ormal or abnormal appendix could not be located but no secondary CT evidence of acute appendicitis is found. Reviewed by: Cleveland Gonzalez MD on 04/07/2023 12:12 AM PDT Approved by: Cleveland Gonzalez MD on 04/07/2023 12:12 AM PDT Station ID: [id number]
[2023-04-07 01:23] VITALS: BP 139/94; O2SAT 98
--- NOTE | 2023-04-07 07:01 | ED Physician Documentation ---
ED Addendum - Addendum Addendum: 04/07/23 06:57 I received signout/turnover of care on this patient from FRANNIE Bagley; please see her note for complete history and physical. In brief, patient presented with right-sided abdominal pain radiating around the right side to her right flank and right lower back. Mostly unremarkable work-up although urinalysis did have nitrites and a small amount of blood. RFANNIE Bagley ordered a dose of Vantin and electronically submitted a prescription for this antibiotic to the patient's pharmacy of choice. At the time of signout, a CT of the abdomen/pelvis is pending; the reason for this is that the patient has had previous UTIs, and she feels that the extent of her discomfort is significantly more severe than she has had with UTIs in the past. There are no concerning nor diagnostic findings on the CT scan of the abdomen/pelvis. This includes no evidence of ureteral calculi, hydronephrosis, ureteronephrosis. I discussed the CT result with the patient. She tells me that she is feeling much improved and she wonders if she might have had renal colic and subsequently passed the stone prior to the CT scan being performed. I explained to her that this would be a possible explanation, although typically there would still be some evidence of swelling of the ureter and/or the kidney (but the absence of such does not exclude this scenario is a possibility). Return precautions are discussed.
== END 2023-04-07 01:20 | disposition home or self-care (01) ==
LOC: ED 20:23
DX: N30.01 Acute cystitis with hematuria (principal); I10 Essential (primary) hypertension; E03.9 Hypothyroidism, unspecified; Z87.440 Personal history of urinary (tract) infections
CPT/HCPCS: 36415; 74177; 80053; 81001; 81025; 83690; 85025; 87086; 99284; A9270; Q0162; Q9967; 81003

== ENCOUNTER 2023-04-29 12:49 | Outpatient (CLI) | payer OTHER ==
[2023-04-29 14:40] LABS: BASOPHILS % (AUTO) 0.5 %; EOSINOPHILS # (AUTO) 0.3 10^3/uL (0.0-0.7); EOSINOPHILS % (AUTO) 3.5 %; HCT - HEMATOCRIT 46.1 % (37.0-47.0); HGB - HEMOGLOBIN 15.7 g/dL (12.0-16.0); LYMPHOCYTES # (AUTO) 2.9 10^3/uL (1.5-3.5); MEAN CORPUSCULAR HEMOGLOBIN 32.8 pg (27.0-31.0); MEAN CORPUSCULAR HGB CONC 34.1 g/dL (32.0-36.0); MEAN CORPUSCULAR VOLUME 96.2 fL (81.0-99.0); MEAN PLATELET VOLUME 9.8 fL (7.9-10.8); MONOCYTES # (AUTO) 0.6 10^3/uL (0.0-1.0); MONOCYTES % (AUTO) 8.3 %; NEUTROPHILS # (AUTO) 3.6 10^3/uL (1.5-6.6); NEUTROPHILS % (AUTO) 48.4 %; PLT - PLATELET COUNT 262 10^3/uL (130-450); RED BLOOD COUNT 4.79 10^6/uL (4.20-5.40); WHITE BLOOD COUNT 7.4 x10^3/uL (4.8-10.8)
[2023-04-29 17:08] LABS: ALBUMIN 4.5 g/dL (3.2-5.5); ALBUMIN/GLOBULIN RATIO 1.7 (1.0-2.2); ALKALINE PHOSPHATASE 54 IU/L (42-121); ALT ALANINE AMINOTRANSFERASE 24 IU/L (10-60); AMYLASE 27 U/L (28-100); AST ASPARTATE AMINOTRANSFERASE 18 IU/L (10-42); BILIRUBIN,TOTAL 0.6 mg/dL (0.2-1.0); BUN - BLOOD UREA NITROGEN 11 mg/dL (6-20); CALCIUM 9.3 mg/dL (8.5-10.3); CARBON DIOXIDE - CO2 23 mmol/L (21-32); CHLORIDE 109 mmol/L (101-111); CHOL/HDL RATIO 4.1 (<4.4); CHOLESTEROL 175 mg/dL; GFR - MDRD 59 (>89); GLUCOSE 90 mg/dL (74-104); HDL CHOLESTEROL 43 mg/dL; LDL CHOLESTEROL,CALCULATED 115 mg/dL; LDL/HDL RATIO 2.7 (<4.4); LIPASE 36 U/L (11-82); POTASSIUM 3.9 mmol/L (3.5-4.5); SODIUM 139 mmol/L (135-145); TOTAL PROTEIN 7.2 g/dL (6.4-8.9); TRIGLYCERIDES 86 mg/dL (48-352); VLDL CHOLESTEROL 17 mg/dL
[2023-04-29 17:25] LABS: THYROID STIMULATING HORMONE 1.28 uIU/mL (0.34-5.60)
== END 2023-04-29 12:50 | disposition home or self-care (01) ==
LOC: LAB.S 12:49
PROVIDERS: ATTEND Physician Assistant
DX: E03.9 Hypothyroidism, unspecified (principal); R94.4 Abnormal results of kidney function studies; R53.83 Other fatigue; R53.81 Other malaise
CPT/HCPCS: 36415; 80053; 80061; 82150; 83690; 83721; 84439; 84443; 84481; 85025

== ENCOUNTER 2023-05-27 13:33 | Outpatient (CLI) | payer OTHER ==
--- NOTE | 2023-05-27 16:02 | Ultrasound Report ---
PROCEDURE: Head or Neck Soft Tissue INDICATIONS: NODULE OF SUBCUTANEOUS TISSUE OF NECK TECHNIQUE: Real-time scanning was performed of the area of interest in the right submandibular area, with image documentation. COMPARISON: None FINDINGS: No abnormality is identified in the area of interest. IMPRESSION: No abnormality is identified on ultrasound to correlate with the palpable abnormality. I f clinical symptoms persist, consider CT or MRI. ACR TI-RADS definitions and recommendations: TI-RADS 1 (benign): 0 points. FNA not needed. TI-RADS 2 (not suspicious): 2 points. FNA not needed. TI-RADS 3 (mildly suspicious): 3 points. "FNA if 2.5 cm or larger, follow up if 1.5 cm or larger (at 1, 3, and 5 years). TI-RADS 4 (moderately suspicious): 4-6 points. "FNA if 1.5 cm or larger, follow up if 1 cm or larger (at 1, 2, 3, and 5 years). TI-RADS 5 (highly suspicious): 7 points or more. "FNA if 1 cm or larger, follow up if 0.5 cm or larger (every year for 5 years). Reviewed by: Chencho Aly MD on 05/27/2023 4:01 PM PST Approved by: Chencho Aly MD on 05/27/2023 4:01 PM PST Station ID: [id number]
== END 2023-05-27 13:34 | disposition home or self-care (01) ==
LOC: DI 13:33
PROVIDERS: ATTEND Physician Assistant Medical
DX: R22.1 Localized swelling, mass and lump, neck (principal)

== ENCOUNTER 2023-05-27 13:34 | Outpatient (CLI) | payer OTHER ==
--- NOTE | 2023-05-28 13:07 | Mammography Report ---
BILATERAL FIRST EVER DIGITAL SCREENING MAMMOGRAM 3D/2D: 05/27/2023 CLINICAL: Baseline exam. Routine screening. No prior exams were available for comparison. Both breasts are almost entirely fatty (category a/<25% glandular tissue). No significant masses, calcifications, or other findings are seen in either breast. IMPRESSION: NEGATIVE There is no mammographic evidence of malignancy. A 1 year screening mammogram is recommended. Based on the Tyrer Cuzick model (a risk assessment model) the patients lifetime risk is 7.5% and her 10 year risk is 1.6%. According to the ACR, ACS, and NCCN guidelines, an annual breast MRI exam yenifer g with mammogram is recommended if the patients lifetime risk is 20% or greater. This exam was interpreted at Station ID: [id number]. NOTE: For mammograms, a report in lay terms will be sent to the patient. Approximately 15% of breast malignancies will not be visualized mammographically. In the management of a palpable breast mass, a negative mammogram must not discourage biopsy of a clinically suspicious lesion. Electronically Signed By: Stevie andrade/joe:05/27/2023 15:26:01 letter sent: No_Letter ACR BI-RADS Category 1: Negative 3341F PARENCHYMAL PATTERN: (F) - The breast(s) demonstrate(s) diffuse fatty replacement. BI-RADS CATEGORY: (1) - 1 Mammogram [id number] 1 year screening LATERALITY: (B)
== END 2023-05-27 13:35 | disposition home or self-care (01) ==
LOC: DI 13:34
PROVIDERS: ATTEND Physician Assistant Medical
DX: Z12.31 Encounter for screening mammogram for malignant neoplasm of breast (principal)

== ENCOUNTER 2023-06-06 10:10 | Outpatient (CLI) | payer OTHER | END 2023-06-06 10:11 | disposition home or self-care (01) | LOC: LAB.S 10:10 | PROVIDERS: ATTEND Physician Assistant Medical | DX: N20.0 Calculus of kidney (principal); M79.673 Pain in unspecified foot | CPT/HCPCS: 36415; 84550 ==

== ENCOUNTER 2023-06-07 08:00 | Outpatient (CLI) | payer OTHER ==
[2023-06-07 15:45] LABS: CREATININE 24 HOUR,URINE 1434 mg/24h (600-1800); CREATININE,URINE 50.3 mg/dL; TOTAL PROTEIN 24HR,URINE 143 mg/24hr (40-150); TOTAL PROTEIN,URINE TIMED 5 mg/dL; TOTAL VOLUME 24HRS,URINE 2850 mL
[2023-06-07 15:56] LABS: MICROALBUMIN,URINE < 0.7 mg/dL
[2023-06-08 07:09] LABS: CALCIUM URINE 12.2 mg/dL (Not Estab.)
== END 2023-06-07 23:58 | disposition home or self-care (01) ==
LOC: LAB.F 08:00
PROVIDERS: ATTEND Physician Assistant Medical
DX: N20.0 Calculus of kidney (principal)
CPT/HCPCS: 81599; 82043; 82340; 82570; 83735; 84105; 84156; 84300; 84560

== ENCOUNTER 2023-09-04 13:41 | Outpatient (CLI) | payer OTHER ==
[2023-09-04 19:43] LABS: BASOPHILS % (AUTO) 0.4 %; EOSINOPHILS # (AUTO) 0.3 10^3/uL (0.0-0.7); EOSINOPHILS % (AUTO) 4.8 %; HGB - HEMOGLOBIN 14.7 g/dL (12.0-16.0); LYMPHOCYTES # (AUTO) 2.4 10^3/uL (1.5-3.5); LYMPHOCYTES % (AUTO) 34.6 %; MEAN CORPUSCULAR HEMOGLOBIN 32.1 pg (27.0-31.0); MEAN CORPUSCULAR HGB CONC 32.7 g/dL (32.0-36.0); MEAN CORPUSCULAR VOLUME 98.3 fL (81.0-99.0); MEAN PLATELET VOLUME 9.8 fL (7.9-10.8); MONOCYTES # (AUTO) 0.5 10^3/uL (0.0-1.0); MONOCYTES % (AUTO) 7.1 %; NEUTROPHILS # (AUTO) 3.7 10^3/uL (1.5-6.6); PLT - PLATELET COUNT 316 10^3/uL (130-450); RED BLOOD COUNT 4.58 10^6/uL (4.20-5.40); RED CELL DISTRIBUTION WIDTH 12.1 % (12.0-15.0); WHITE BLOOD COUNT 6.9 x10^3/uL (4.8-10.8)
[2023-09-04 19:52] LABS: RHEUMATOID FACTOR NEGATIVE (Negative)
[2023-09-04 19:57] LABS: ALBUMIN 4.3 g/dL (3.2-5.5); ALBUMIN/GLOBULIN RATIO 1.7 (1.0-2.2); ALKALINE PHOSPHATASE 56 IU/L (42-121); ALT ALANINE AMINOTRANSFERASE 21 IU/L (10-60); AST ASPARTATE AMINOTRANSFERASE 19 IU/L (10-42); BILIRUBIN,TOTAL 0.6 mg/dL (0.2-1.0); BUN - BLOOD UREA NITROGEN 12 mg/dL (6-20); CALCIUM 9.2 mg/dL (8.5-10.3); CARBON DIOXIDE - CO2 23 mmol/L (21-32); CHLORIDE 109 mmol/L (101-111); CHOL/HDL RATIO 4.1 (<4.4); CHOLESTEROL 181 mg/dL; CREATININE 0.9 mg/dL (0.6-1.3); GFR - MDRD 67 (>89); GLUCOSE 93 mg/dL (74-104); HDL CHOLESTEROL 44 mg/dL; LDL CHOLESTEROL,CALCULATED 123 mg/dL; LDL/HDL RATIO 2.8 (<4.4); POTASSIUM 3.9 mmol/L (3.5-4.5); SODIUM 137 mmol/L (135-145); TOTAL PROTEIN 6.9 g/dL (6.4-8.9); TRIGLYCERIDES 71 mg/dL (48-352); URIC ACID 5.7 mg/dL (2.3-6.6); VLDL CHOLESTEROL 14 mg/dL
[2023-09-04 21:19] LABS: ESTIMATED AVERAGE GLUCOSE 97 mg/dL (70-100)
[2023-09-06 19:07] LABS: ANTI-DNA (DS) AB QN <1 IU/mL (0-9)
== END 2023-09-04 13:42 | disposition home or self-care (01) ==
LOC: LAB.S 13:41
PROVIDERS: ATTEND Physician Assistant Medical
DX: R60.9 Edema, unspecified (principal); M25.50 Pain in unspecified joint
CPT/HCPCS: 36415; 80053; 80061; 83036; 83721; 84550; 85025; 85651; 86038; 86140; 86200; 86225; 86430

== ENCOUNTER 2023-09-30 08:00 | Outpatient (CLI) | payer OTHER ==
--- NOTE | 2023-10-01 19:40 | XRAY Report ---
PROCEDURE: Wrist 3+V RT INDICATIONS: SPRAIN OF RIGHT WRIST TECHNIQUE: 4 views of the wrist were acquired. COMPARISON: None. FINDINGS: Bones: Acute, transverse, minimally impacted and displaced, intra-articular fracture of the distal r adius. No suspicious bony lesions. Soft tissues: No suspicious soft tissue calcifications or masses. IMPRESSION: Acute, transverse, extra articular fracture of the distal radius which is minimally impacted and disp laced. Reviewed by: Rafal Barron MD on 10/01/2023 7:38 PM PDT Approved by: Rafal Barron MD on 10/01/2023 7:38 PM PDT Station ID: [id number]
== END 2023-09-30 23:59 | disposition home or self-care (01) ==
LOC: DI.S 08:00
PROVIDERS: ATTEND Emergency Medicine
DX: S52.551A Other extraarticular fracture of lower end of right radius, initial encounter for closed fracture (principal)

== ENCOUNTER 2023-10-07 10:00 | Outpatient (CLI) | payer OTHER ==
--- NOTE | 2023-10-07 14:14 | XRAY Report ---
PROCEDURE: Wrist 3 View RT INDICATIONS: RIGHT WRIST PAIN TECHNIQUE: 3 views of the wrist were acquired. COMPARISON: Right wrist radiographs 09/30/2023 FINDINGS: Bones: Minimally impacted transverse fracture of the distal radius is again seen with unchanged alig nment. No new osseous abnormality. Soft tissues: No suspicious soft tissue calcifications or masses. IMPRESSION: Distal radial fracture redemonstrated with unchanged alignment. Reviewed by: Stevie Laws MD on 10/07/2023 2:12 PM PDT Approved by: Stevie Laws MD on 10/07/2023 2:12 PM PDT Station ID: [id number]
== END 2023-10-07 23:59 | disposition home or self-care (01) ==
LOC: DI.WOS 10:00
PROVIDERS: ATTEND Physician Assistant Surgical
DX: S52.591A Other fractures of lower end of right radius, initial encounter for closed fracture (principal)

== ENCOUNTER 2023-10-11 08:00 | Outpatient (CLI) | payer OTHER ==
--- NOTE | 2023-10-12 16:58 | XRAY Report ---
PROCEDURE: Wrist 1-2V LT INDICATIONS: LEFT WRIST PAIN TECHNIQUE: 2 views of the wrist were acquired. COMPARISON: None FINDINGS: Bones: No fractures or dislocations. No suspicious bony lesions. Soft tissues: No suspicious soft tissue calcifications or masses. IMPRESSION: No visualized acute fracture or dislocation. However, occult injury cannot be excluded. Recommend carito rt interval imaging follow-up in 7-10 days as clinically indicated for additional evaluation. Reviewed by: Britatny Wolf MD on 10/12/2023 4:56 PM PDT Approved by: Brittany Wolf MD on 10/12/2023 4:56 PM PDT Station ID: [id number]
== END 2023-10-11 23:59 | disposition home or self-care (01) ==
LOC: DI.S 08:00
PROVIDERS: ATTEND Internal Medicine
DX: M25.532 Pain in left wrist (principal)

== ENCOUNTER 2023-11-11 17:37 | Outpatient (CLI) | payer OTHER ==
--- NOTE | 2023-11-13 15:39 | XRAY Report ---
PROCEDURE: Wrist 3+V RT INDICATIONS: RIGHT FOREARM FX TECHNIQUE: 3 views of the wrist were acquired. COMPARISON: Right wrist radiograph on October 22, 2023 FINDINGS: Bones: Similar appearance of comminuted, impacted, mildly displaced fracture of the distal radius wi th intra-articular extension. No significant callus formation. Fracture plane remains conspicuous. No new fracture. Stable alignment with slight ulnar positive variance. No suspicious bony lesions. Soft tissues: No suspicious soft tissue calcifications or masses. IMPRESSION: 1.Similar appearance of comminuted, mildly displaced intra-articular fracture of the distal radius. F racture plane remains conspicuous. Stable alignment with slight ulnar positive variance. 2.No new fractures. Specifically, no ulnar styloid fracture. Reviewed by: Rafal Barron MD on 11/13/2023 3:38 PM PDT Approved by: Rafal Barron MD on 11/13/2023 3:38 PM PDT Station ID: [id number]
== END 2023-11-11 17:38 | disposition home or self-care (01) ==
LOC: DI.S 17:37
PROVIDERS: ATTEND Physician Assistant Surgical
DX: S52.571D Other intraarticular fracture of lower end of right radius, subsequent encounter for closed fracture with routine healing (principal)

== ENCOUNTER 2023-11-12 00:16 | Emergency (ER) | payer OTHER ==
[2023-11-12 01:31] LABS: BASOPHILS % (AUTO) 0.5 %; EOSINOPHILS # (AUTO) 0.4 10^3/uL (0.0-0.7); EOSINOPHILS % (AUTO) 4.3 %; HCT - HEMATOCRIT 42.6 % (37.0-47.0); HGB - HEMOGLOBIN 14.1 g/dL (12.0-16.0); LYMPHOCYTES # (AUTO) 3.6 10^3/uL (1.5-3.5); LYMPHOCYTES % (AUTO) 42.7 %; MEAN CORPUSCULAR HGB CONC 33.1 g/dL (32.0-36.0); MEAN CORPUSCULAR VOLUME 96.8 fL (81.0-99.0); MEAN PLATELET VOLUME 9.1 fL (7.9-10.8); MONOCYTES # (AUTO) 0.5 10^3/uL (0.0-1.0); MONOCYTES % (AUTO) 5.8 %; NEUTROPHILS # (AUTO) 3.9 10^3/uL (1.5-6.6); NEUTROPHILS % (AUTO) 46.6 %; PLT - PLATELET COUNT 288 10^3/uL (130-450); RED CELL DISTRIBUTION WIDTH 11.9 % (12.0-15.0); WHITE BLOOD COUNT 8.3 x10^3/uL (4.8-10.8)
[2023-11-12 01:36] LABS: INR 1.1 (0.8-1.2); PT - PROTHROMBIN TIME 11.4 secs (9.9-12.6)
[2023-11-12] MEDS: ONDANSETRON 4 MG/2 ML VIAL IVP STA (01:41)
[2023-11-12] MEDS: SODIUM CHLORIDE 0.9% 1,000 ML IV STA (01:41)
[2023-11-12 01:43] LABS: ALBUMIN 4.1 g/dL (3.2-5.5); ALBUMIN/GLOBULIN RATIO 1.6 (1.0-2.2); BILIRUBIN,TOTAL 0.3 mg/dL (0.2-1.0); CALCIUM 9.3 mg/dL (8.5-10.3); POTASSIUM 3.7 mmol/L (3.5-4.5); TOTAL PROTEIN 6.6 g/dL (6.4-8.9)
--- NOTE | 2023-11-12 01:53 | XRAY Report ---
PROCEDURE: Chest 1V INDICATIONS: sob TECHNIQUE: One view of the chest was acquired. COMPARISON: None. FINDINGS: Surgical changes and devices: None. Lungs and pleura: No pleural effusions or pneumothorax. Lungs are clear. Mediastinum: Mediastinal contours appear normal. Heart size is normal. Bones and chest wall: No suspicious bony lesions. Overlying soft tissues appear unremarkable. IMPRESSION: No acute cardiopulmonary process. Reviewed by: Rodrick Moreno MD on 11/12/2023 1:52 AM PDT Approved by: Rodrick Moreno MD on 11/12/2023 1:52 AM PDT Station ID: [id number]
[2023-11-12] MEDS ORDERED: iohexoL-300 100 ML VIAL ONE (02:01)
[2023-11-12] MEDS: iohexoL-300 100 ML VIAL IVP ONE (02:24)
[2023-11-12 04:13] VITALS: BP 145/92; O2SAT 97
--- NOTE | 2023-11-12 04:13 | ED Physician Documentation ---
PD HPI DYSPNEA - Stated complaint Stated Complaint: CHEST PX/SOA - Chief complaint Chief Complaint: Cardiac - History obtained from History obtained from: Patient - Additional information Additional information: The patient comes to the emergency department chief complaint of Dyspnea on exertion For the past few days. She states she does not feel anxious. She states that she has some mild discomfort that goes from her stomach to her throat area. She denies any nausea or vomiting. No shortness of breath or cough. No rhinorrhea. The patient states she has not been ill with anything recently. No known cardiac issues. No other complaints at this time. She states does not get better or worse with movement/exertion. PD PAST MEDICAL HISTORY - Past Medical History Cardiovascular: Hypertension Endocrine/Autoimmune: HyPOthyroidism Psych: Depression, Anxiety - Present Medications Home Medications: Ambulatory Orders Medication Instructions Recorded Confirmed Cefpodoxime Proxetil [Vantin] 100 mg PO Q12H #14 tablet 04/06/23 - Allergies Allergies/Adverse Reactions: Allergies Allergy/AdvReac Type Severity Reaction Status Date / Time No Known Drug Allergies Allergy Verified 11/12/23 00:29 - Social History Does the pt smoke?: No Smoking Status: Never smoker Does the pt drink ETOH?: Yes Does the pt have substance abuse?: Yes - Immunizations Immunizations are current?: Yes - POLST Patient has POLST: No PD ED PE NORMAL - Vitals Vital signs reviewed: Yes - General General: Alert and oriented X 3, No acute distress, Well developed/nourished - HEENT HEENT: Atraumatic, PERRL, EOMI, Moist mucous membranes - Neck Neck: Supple, no meningeal sign - Cardiac Cardiac: RRR, No murmur - Respiratory Respiratory: No respiratory distress, Clear bilaterally - Abdomen Abdomen: Soft, Non tender, Non distended - Derm Derm: Normal color, Warm and dry, No rash - Extremities Extremities: No deformity, No edema - Neuro Neuro: Alert and oriented X 3 - Psych Psych: Normal mood, Normal affect Results - Vitals Vitals: Oxygen O2 Source Room air - EKG (time done) 0024 EKG releavant findings:: EKG personally interpreted by author of this note. Relevant findings are: Rate: Rate (enter#) (98) Rhythm: NSR [place]: Normal Intervals: Normal [place] QRS: Normal Ischemia: Normal ST segments Compare to prior EKG: Old EKG unavailable Computer interpretation: Agree with computer - Labs Labs: Laboratory Tests 11/12/23 11/12/23 11/12/23 00:42 00:42 00:42 WBC 8.3 RBC 4.40 Hgb 14.1 Hct 42.6 MCV 96.8 MCH 32.0 H MCHC 33.1 RDW 11.9 L Plt Count 288 MPV 9.1 Neut # (Auto) 3.9 Lymph # (Auto) 3.6 H [place] # (Auto) 0.5 Eos # (Auto) 0.4 Baso # (Auto) 0.0 Absolute Nucleated RBC 0.00 Nucleated RBC % 0.0 PT INR D-Dimer Sodium 141 Potassium 3.7 Chloride 114 H Carbon Dioxide 21 Anion Gap 6.0 BUN 15 Creatinine 1.0 Estimated GFR (MDRD) 59 L Glucose 137 H Calcium 9.3 Total Bilirubin 0.3 AST 12 ALT 14 Alkaline Phosphatase 53 Troponin I High Sens 3.1 Total Protein 6.6 Albumin 4.1 Globulin 2.5 Albumin/Globulin Ratio 1.6 Lipase 27 11/12/23 11/12/23 01:05 01:05 WBC RBC Hgb Hct MCV MCH MCHC RDW Plt Count MPV Neut # (Auto) Lymph # (Auto) [place] # (Auto) Eos # (Auto) Baso # (Auto) Absolute Nucleated RBC Nucleated RBC % PT 11.4 INR 1.1 D-Dimer 218.2 Sodium Potassium Chloride Carbon Dioxide Anion Gap BUN Creatinine Estimated GFR (MDRD) Glucose Calcium Total Bilirubin AST ALT Alkaline Phosphatase Troponin I High Sens Total Protein Albumin Globulin Albumin/Globulin Ratio Lipase - Rads (name of study) CTA chest Relevant Findings:: Final report received, See rad report (Negative) PD Medical Decision Making - ED course Complexity details: reviewed results, re-evaluated patient, considered differential, d/w patient ED course: The patient was worked up extensively with labs, EKG, chest x-ray, and ultimately CT scan of the abdomen and pelvis. She had complained of dyspnea and had persistent tachycardia despite IV fluid, so CT of the chest was performed. This was negative. Patient was feeling little better after symptomatic treatment and I felt she was stable for discharge home. I am not sure why she has persistent mild tachycardia or a sense of dyspnea but I have explained to her that she will need to follow-up with her primary care physician. We have discussed the usual indications for return. Departure - Departure Disposition: 01 Home, Self Care Clinical Impression: Dyspnea Qualifiers: Dyspnea type: dyspnea on exertion Qualified Code(s): R06.09 - Other forms of dyspnea Condition: Stable Instructions: ED Dyspnea Shortness of Breath Comments: Extensive workup today has been negative including cardiac enzymes, EKG, chest x-ray, and CT scan of the chest. It is not clear why you are feeling the way you are, but no emergent cause has been identified. Please follow-up with your primary care physician, should your symptoms continue. Forms: PCP List Discharge Date/Time: 11/12/23 04:22
--- NOTE | 2023-11-12 07:47 | CT Report ---
PROCEDURE: Angio Chest INDICATIONS: dyspnea, tachycardia, chest discomfort CONTRAST: Omni 300, 80mls TECHNIQUE: After the administration of intravenous contrast, 2 mm axial images were acquired from the pulmonary apices to the posterior costophrenic angles during the arterial phase. In addition, 1 mm lung kernel and 5 mm soft tissue kernel reconstructions were performed. 3-dimensional coronal oblique maximum int ensity projection (MIP) reformats, 8 mm axial MIP, and 5 mm coronal and sagittal MPR reformats were t hen performed through the thorax. For radiation dose reduction, the following was used: automated exp osure control, adjustment of mA and/or kV according to patient size. COMPARISON: Same-day radiograph FINDINGS: Image quality: Diagnostic Lungs and pleura:Mild bilateral groundglass opacities. Basal atelectasis. No dense airspace disease o r pleural effusions. Mediastinum, heart, and esophagus: No acute pulmonary embolism. The distal arteries are partially obs cured by contrast timing and motion artifact no hiatal hernia. Heart size is at the upper liver are n ormal. No pathologic lymph nodes by size criteria Chest wall and thyroid: Unremarkable thyroid and chest wall Upper abdomen: Cholecystectomy clips. No gross abnormality on these arterial phase images Bones: No acute or suspicious osseous finding. There are nonacute appearing right rib deformities. IMPRESSION: No acute pulmonary embolism. Pulmonary groundglass opacities may be infectious/inflammatory versus edema. Superimposed atelectasis is present. No discrete airspace consolidation or pleural effusions. Consider future imaging surveil sandra to assess for resolution. Agree with preliminary report. Reviewed by: Pedro Arce MD on 11/12/2023 7:46 AM PDT Approved by: Pedro Arce MD on 11/12/2023 7:46 AM PDT Station ID: [id number]
== END 2023-11-12 04:22 | disposition home or self-care (01) ==
LOC: ED 00:16
DX: R06.09 Other forms of dyspnea (principal); R00.0 Tachycardia, unspecified
CPT/HCPCS: 36415; 71045; 71275; 80053; 83690; 84484; 85025; 85379; 85610; 93005; 96360; 99284; Q9967

== ENCOUNTER 2024-03-03 09:53 | Day surgery (SDC) | payer OTHER ==
--- NOTE | 2024-03-02 07:01 | HISTORY & PHYSICAL EXAMINATION ---
PMH/PSH - Past Medical History Cardiovascular: positive: Hypertension Respiratory: positive: Asthma, CPAP use Endocrine/Autoimmune: positive: HyPOthyroidism GI: positive: GERD : positive: Kidney stones Psych: positive: Depression, Anxiety Musculoskeletal: positive: None MRSA Hx?: No - Past Surgical History General: positive: Cholecystectomy HEENT: positive: Other Social & Family Hx - Social History Does the pt smoke?: No Smoking Status: Never smoker Does the pt drink ETOH?: Yes Does the pt have substance abuse?: Yes Substance Use and Type:  - POLST Patient has POLST: No Meds/Allgy - Home Medications Home Medications: Ambulatory Orders Medication Instructions Recorded Confirmed Cyclobenzaprine [Flexeril] 10 mg PO HS 02/28/24 02/28/24 Ipratropium [Atrovent] 1 puffs INH Q6H 02/28/24 02/28/24 Lamotrigine [Lamictal (Blue)] 25 mg PO DAILY 02/28/24 02/28/24 Lansoprazole [Prevacid] 15 mg PO DAILY 02/28/24 02/28/24 Liothyronine [Cytomel] 5 mcg PO QDAC 02/28/24 02/28/24 Lisinopril [Zestril] 20 mg PO DAILY 02/28/24 02/28/24 Meloxicam 7.5 mg PO DAILY 02/28/24 02/28/24 Methylphenidate HCl [Relexxii] 18 mg PO DAILY 02/28/24 02/28/24 Mometasone/Formoterol [Dulera 200 13 gm IH DAILY 02/28/24 02/28/24 Mcg-5 Mcg Inhaler] Montelukast [Singulair] 10 mg PO DAILY 02/28/24 02/28/24 Tiotropium [place] [Spiriva] 1 puffs INH DAILY 02/28/24 02/28/24 Topiramate [Topiramate ER] 100 mg PO DAILY 02/28/24 02/28/24 buPROPion HCL [Bupropion Xl] 300 mg PO DAILY 02/28/24 02/28/24 carvediloL [Coreg] 25 mg PO DAILY 02/28/24 02/28/24 hydroCHLOROthiazide [Hydrodiuril] 12.5 mg PO DAILY 02/28/24 02/28/24 lamoTRIgine [LaMICtal] 100 mg PO DAILY 02/28/24 02/28/24 - Allergies Allergies/Adverse Reactions: Allergies Allergy/AdvReac Type Severity Reaction Status Date / Time No Known Drug Allergies Allergy Verified 11/12/23 00:29 Impression/Plan - Problem List Problem List: Preop H&P CC: colonoscopy. History of Present Illness: Patient is here today for a consult: colonoscopy ...................................................................Nyasia Dutton MA January 16, 2024 1:00 PM. 48 year old female referred to my office for consideration of screening colonoscopy. She has no lower GI symptoms other than occasional constipation and no personal history of colon cancer or polyps. She does take meloxicam daily. Mallampati Score Class II: The soft palate, tonsils, and most of the uvula can be seen ASA Physical Status Classification System ASA II: A patient with mild systemic disease Allergies: Allergies Reviewed: Done No Known Allergies Social History Reviewed: Done Medications: Meds Reviewed: Done Dulera 100-5 mcg/actuation HFA aerosol inhaler (mometasone-formoterol) Inhale 2 puff as directed once a day meloxicam 7.5 mg tablet (meloxicam) Take 1 tablet by mouth once a day for pain take with food olopatadine 0.1% drops (olopatadine) 1 drop into affected eye as directed as ne eded * Cisco jain multivitamin * Doctors best fully active B complex * D mannose 650 mg a.m and p.m. * Fenugreek 700 mg a.m. and p.m. * opti folate l methylfolate 15 mg a.m. * Iron bisglycinate 25 mg Sat * Cayla Tichnor-3 algae oil DHA & EPA 450 mg a.m. * Wholes[employer] Womens Raw Probiotic 100B CFU a.m. * Prevacid (lansoprazole) 1 by mouth every evening Rios 500 mg tablet (magnesium oxide) Take 1 by mouth every evening loratadine 10 mg tablet (loratadine) Take 1 by mouth every morning * pseudoephedrine HCl As needed lamotrigine 100 mg tablet (lamotrigine) 1 1/4 once a day carvedilol 12.5 mg tablet (carvedilol) Take 3 tablet by mouth once a day topiramate 100 mg tablet (topiramate) Spiriva with HandiHaler 18 mcg capsule, w/inhalation device (tiotropium bromide) bupropion HCl 300 mg tablet extended release 24 hr (bupropion hcl) cyclobenzaprine 10 mg tablet (cyclobenzaprine) lisinopril 20 mg tablet (lisinopril) montelukast 10 mg tablet (montelukast) Take 1 tablet by mouth once a day albuterol sulfate 2.5 mg/3 mL (0.083 %) solution for nebulization (albuterol sulfate) Inhale 2 puff as directed CELL STRIPPER FINAL Thyroid 60 mg tablet (thyroid (pork)) Take 1 tablet by mouth once a day Atrovent HFA 17 mcg/actuation HFA aerosol inhaler (ipratropium bromide) Inhale 2 puff as directed budesonide-formoterol 160-4.5 mcg/actuation HFA aerosol inhaler (budesonide-formoterol) Inhale 2 puff using inhaler twice a day liothyronine 5 mcg tablet (liothyronine) Take 1 tablet by mouth once a day TAKE 1 TABLET BY MOUTH DAILY Elinest 0.3-30 mg-mcg tablet (norgestrel-ethinyl estradiol) Take 1 tablet by mouth once a day ipratropium-albuterol 0.5 mg-3 mg(2.5 mg base)/3 mL solution for nebulization (ipratropium-albuterol) Problems: Problems Reviewed: Done Encounter for screening for malignant neoplasm of colon (ICD-V76.51) (ICD10- Z12.11) Hematoma of arm (ICD-729.92) (LKB29-Q03.89) Knee pain, right (ICD-719.46) (BCK43-S28.561) Wrist joint pain, left (ICD-719.43) (GBO99-P21.532) Unspecified fracture of right forearm, initial encounter for closed fracture (ICD-813.81) (PMG70-Z98.91xA) Sprain of radiocarpal joint of right wrist, initial encounter (ICD-842.02) (FIU28-G48.521A) Arthralgia (ICD-719.40) (VXG82-V78.50) Acute cough (XLT85-C30.1) Obesity (ICD-278.00) (EXW77-H23.9) Low back pain, unspecified (ICD-724.2) (HQT65-L26.50) Migraine (ICD-346.90) (XJG66-B73.909) Asthma (ICD-493.90) (VEY07-T38.909) Depression (ICD-311) (FHU53-V74.9) Nephrolithiasis (ICD-592.0) (LQX98-F00.0) Health maintenance - general care (ICD-V70.0) (ILE21-C71.00) Nodule of subcutaneous tissue of neck (KUH07-L27.1) Encounter for screening mammogram for malignant neoplasm of breast (ICD-V76.12) (HKO05-E76.31) Foot pain (ICD-729.5) (WZK70-A36.673) Edema, peripheral (ICD-782.3) (UAC59-B76.9) Abnormal kidney function study (ICD-794.4) (DAD62-P83.4) Fatigue and malaise (ICD-780.79) (KHR78-S43.83) Hypothyroidism (ICD-244.9) (RQM12-C85.9) Allergies, seasonal (ICD-477.0) (HDF33-S94.2) Paresthesia (ICD-782.0) (DTA03-T01.2) Other herpes zoster eye disease (PBQ54-Q40.39) Urinary urgency (ICD-788.63) (GVB40-L36.15) Urinary frequency (ICD-788.41) (RYX79-V04.0) Past Medical History: Reviewed history from 01/13/2024 and no changes required: Had Covid 09/2019 and since has Tachy Cardia ADHD Austic Back Arthritis PTOS Possible kidney calculi on 04/06/2023 seen in ER. Past Surgical History: Reviewed history from 09/30/2023 and no changes required: cholecystectomy Tooth extraction Family History Summary: Family History Reviewed: 01/16/2024 Family History of Other Cancer for Mother - Entered On: 05/07/2023 Family History of [place] male <55 for Father - Entered On: 10/11/2023 Legacy Family History Notes: Paternal Grandma - suicide Uncle Alzheimer/ Parkinson Risk Factors-CCC: Smoked Tobacco Use: Never smoker Smokeless Tobacco Use: Never Vaping / e-cigarette use: Never Alcohol Use: yes Drinks per day: <1 Drug Use: no Marijuana Use: yes Review of Systems General Denies fever, anorexia and weight loss. GI Denies abdominal pain, nausea, vomiting, diarrhea, constipation, change in bowel habits, melena, hematochezia, jaundice, gas/bloating, indigestion/heartburn, dysphagia and odynophagia. Breast Denies left breast lump, right breast lump, nipple discharge, bloody discharge from nipple, breast pain, abnormal mammogram and breast enlargement. CV Denies chest pains, palpitations, syncope and peripheral edema. Resp Denies cough, shortness of breath, hemoptysis, wheezing and pleuritic chest pain. Vascular Denies varicose veins, leg swelling, leg redness, leg coolness, pain in legs with walking, resting leg pain, pain at night in legs and blue toe(s). Denies vaginal discharge, incontinence, dysuria, hematuria, urinary frequency, abnormal vaginal bleeding, pelvic pain and . Wound Denies wound redness, wound discharge, wound pain, opening of wound, purulent discharge and bleeding from wound. Derm Denies suspicious lesions, new skin lesions, changing mole(s), rash, itching and history of skin cancer. Neuro Denies paralysis, paresthesias, seizures and frequent headaches. Psych Denies depression, anxiety, memory loss, suicidal ideation, hallucinations, paranoia, phobia and confusion. Endo Denies cold intolerance, heat intolerance, polydipsia, polyphagia, polyuria and unusual weight change. Heme Denies abnormal bruising, bleeding and enlarged lymph nodes. MS Denies back pain, sciatica and arthritis. Other Denies stoma redness, pain around stoma, discharge from stoma, pain from venous catheter, redness at vascular access site and purulent drainage from vascular access site. Vital Signs: Patient Profile: 48 Years Old Female Height: 61 inches Weight: 266.1 pounds BMI: 50.46 O2 Sat: 100 % on room air Temp: 98.2 degrees F temporal Pulse rate: 90 / minute Pulse rhythm: regular Resp: 16 per minute BP sittin / 86 Cuff size: small Vitals Entered By: Nyasia Dutton MA (January 16, 2024 1:00 PM) Problems were reviewed with the patient during this visit. Medications were reviewed with the patient during this visit. Allergies were reviewed with the patient during this visit. No known allergies. Physical Exam General: well developed, well nourished, in no acute distress Head: normocephalic and atraumatic Eyes: PERRLA/EOM intact; conjunctiva and sclera clear Ears: Normal hearing Nose: no deformity, discharge, inflammation, or lesions Mouth: no deformity or lesions with good dentition Neck: no masses, thyromegaly, or abnormal cervical nodes Lungs: clear bilaterally to A & P Heart: regular rate and rhythm, S1, S2 without murmurs, rubs, gallops, or clicks Abdomen: bowel sounds positive; abdomen soft and non-tender without masses, o rganomegaly, or hernias noted Msk: no deformity or scoliosis noted with normal posture and gait Pulses: pulses normal in all 4 extremities Extremities: no clubbing, cyanosis, edema, or deformity noted with normal full range of motion of all joints Neurologic: no focal deficits, CN II-XII grossly intact with normal reflexes, coordination, muscle strength and tone Skin: intact without lesions or rashes Cervical Nodes: no significant adenopathy Psych: alert and cooperative; normal mood and affect; normal attention span and concentration Blood Pressure: Today's BP: 127/86 mmHg Assessment 1) Request for screening colonoscopy examination Plan: 1) Stop meloxicam 7 days pre-procedure 2) Colonoscopy under monitored sedation Consent: Simin has been counseled for the procedure, it's indications, risks, benefits and expected outcome as well as alternative therapies. We specifically discussed risks associated with anesthesia and insertion of the endoscope into the large intestine which includes bleeding and injury to the colon which may require surgical intervention. Simin understands, agrees, and consents to the proposed operative strategy and requests that we proceed with the procedure as outlined in our discussion. Sinan Serrano MD, [facility] General Surgery Service <><><><><><> H&P Update: 03/03/2024; 11:40 Patient examined, chart reviewed. No changes identified that would alter plan for screening colonoscopy. Sinan Serrano MD, [facility] General Surgery Service
[2024-03-03] MEDS: SALINE ENEMA 133 ML BOTTLE RC ONE (10:44)
[2024-03-03] MEDS ORDERED: PROPOFOL 500 MG/50 ML 500 MG/50 ML VIAL ONE (10:44)
[2024-03-03] MEDS ORDERED: LIDOCAINE-MPF 2% 5 ML VIAL ONE (10:50)
--- NOTE | 2024-03-03 11:06 | ANESTHESIA ---
Pre-Anesthesia VS, & Labs - Diagnosis Screening exam - Procedure colonoscopy Vital Signs: Temp Pulse Resp BP Pulse Ox O2 Flow Rate 36.2 C L 108 H 18 132/92 H 99 03/03/24 10:14 03/03/24 10:14 03/03/24 10:14 03/03/24 10:14 03/03/24 10:14 Height: 5 ft 1 in Weight (kg): 119.3 kg Body Mass Index: 49.6 BMI Classification: Morbidly Obese - NPO Last Fluid Intake: Clear liquid at 0745 - Is Patient ?: No Home Medications and Allergies Home Medications: Ambulatory Orders Cyclobenzaprine [Flexeril] 10 mg PO HS 02/28/24 Ipratropium [Atrovent] 1 puffs INH Q6H 02/28/24 Lamotrigine [Lamictal (Blue)] 25 mg PO DAILY 02/28/24 Lansoprazole [Prevacid] 15 mg PO DAILY 02/28/24 Liothyronine [Cytomel] 5 mcg PO QDAC 02/28/24 Lisinopril [Zestril] 20 mg PO DAILY 02/28/24 Meloxicam 7.5 mg PO DAILY 02/28/24 Methylphenidate HCl [Relexxii] 18 mg PO DAILY 02/28/24 Mometasone/Formoterol [Dulera 200 Mcg-5 Mcg Inhaler] 13 gm IH DAILY 02/28/24 Montelukast [Singulair] 10 mg PO DAILY 02/28/24 Tiotropium [place] [Spiriva] 1 puffs INH DAILY 02/28/24 Topiramate [Topiramate ER] 100 mg PO DAILY 02/28/24 buPROPion HCL [Bupropion Xl] 300 mg PO DAILY 02/28/24 carvediloL [Coreg] 25 mg PO DAILY 02/28/24 hydroCHLOROthiazide [Hydrodiuril] 12.5 mg PO DAILY 02/28/24 lamoTRIgine [LaMICtal] 100 mg PO DAILY 02/28/24 Cyclobenzaprine [Flexeril] 10 mg PO HS 02/28/24 Ipratropium [Atrovent] 1 puffs INH Q6H 02/28/24 Lamotrigine [Lamictal (Blue)] 25 mg PO DAILY 02/28/24 Lansoprazole [Prevacid] 15 mg PO DAILY 02/28/24 Liothyronine [Cytomel] 5 mcg PO QDAC 02/28/24 Lisinopril [Zestril] 20 mg PO DAILY 02/28/24 Meloxicam 7.5 mg PO DAILY 02/28/24 Methylphenidate HCl [Relexxii] 18 mg PO DAILY 02/28/24 Mometasone/Formoterol [Dulera 200 Mcg-5 Mcg Inhaler] 13 gm IH DAILY 02/28/24 Montelukast [Singulair] 10 mg PO DAILY 02/28/24 Tiotropium [place] [Spiriva] 1 puffs INH DAILY 02/28/24 Topiramate [Topiramate ER] 100 mg PO DAILY 02/28/24 buPROPion HCL [Bupropion Xl] 300 mg PO DAILY 02/28/24 carvediloL [Coreg] 25 mg PO DAILY 02/28/24 hydroCHLOROthiazide [Hydrodiuril] 12.5 mg PO DAILY 02/28/24 lamoTRIgine [LaMICtal] 100 mg PO DAILY 02/28/24 Allergies/Adverse Reactions: Allergies Allergy/AdvReac Type Severity Reaction Status Date / Time No Known Drug Allergies Allergy Verified 11/12/23 00:29 Anes History & Medical History - Anesthetic History Anesthesia Complications: reports: No previous complications - Medical History Cardiovascular: reports: Hypertension, 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) Pulmonary: reports: Asthma, CPAP use Gastrointestinal: reports: GERD Urinary: reports: Kidney stones Neuro: reports: None Musculoskeletal: reports: None Endocrine/Autoimmune: reports: HyPOthyroidism Smoking Status: Never smoker Psychosocial: reports: Depression, Anxiety History of Cancer?: No - Surgical History General: reports: Cholecystectomy Eyes Ears Nose Throat (EENT): reports: Other (sinus surgery) Exam General: Alert, Oriented x3, Cooperative, No acute distress Dental: WNL Mouth Openin Fingerbreadth Neck Mobility: Normal Mallampati classification: I Thyromental Distance: 4-6 cm Mental/Cognitive Status: Alert/Oriented X3, Normal for patient Plan Anesthesia Type: General, Total IV Consent for Procedure(s) Verified and Reviewed: Yes Code Status: Attempt Resuscitation ASA classification: 3-Severe systemic disease Is this case an emergency?: No
[2024-03-03] MEDS ORDERED: PROPOFOL 200 MG/20 ML VIAL IVP ONE ×2 (11:54→12:00)
[2024-03-03] MEDS: LACTATED RINGERS 1,000 ML IV ONE (12:22)
--- NOTE | 2024-03-03 12:31 | ANESTHESIA POST OP EVALUATION ---
Anesthesia Post Eval - Post Anesthesia Eval Vitals: Last Vital Signs Temp 36.3 C L 03/03/24 12:25 Pulse 95 03/03/24 12:30 Resp 18 03/03/24 12:30 BP 85/56 L 03/03/24 12:30 Pulse Ox 99 03/03/24 12:30 O2 Flow Rate CV Function Including HR & BP: Stable Pain Control: Satisfactory Nausea & Vomiting: Negative Mental Status: Baseline Respiratory Status: Airway Patent Hydration Status: Satisfactory Anesthesia Complications: None
[2024-03-03 12:54] VITALS: BP 103/68; O2SAT 100
== END 2024-03-03 09:54 | disposition home or self-care (01) ==
LOC: SDS 09:53
PROVIDERS: ATTEND Surgery
DX: Z12.11 Encounter for screening for malignant neoplasm of colon (principal); I10 Essential (primary) hypertension; J45.909 Unspecified asthma, uncomplicated; E66.01 Morbid (severe) obesity due to excess calories; Z53.29 Procedure and treatment not carried out because of patient's decision for other reasons; Z68.43 Body mass index [BMI] 50.0-59.9, adult
CPT/HCPCS: A9270; G0121; J7120